=== PATIENT | female | born 1985 | race African-American/Black ===

== ENCOUNTER 2017-10-05 18:54 | Emergency (ER) | payer OTHER ==
[~2017-10-05] VITALS: Ht 162.6 cm; Wt 53.5 kg
--- NOTE | ~2017-10-05 | EKG ---
[address] [address] ELECTROCARDIOGRAM REPORT Name: SHIV MYERS Room #: DEP RENATO Onofre#: [id number] Admission: 10/05/17 Attend Phys: Discharge: 10/05/17 Date of : 85 Report #: [id number] THIS REPORT FOR: //name// [facility] ED Test Date: 2017-10-05 Test Time: 19:00:05 Pat Name: SHIV MYERS Department: Room: Gender: F Back Tender Pulp Drier: LOLA : 1985 Requested By: Hermila Gill Order Number: [id number] MD: Rj Gong Measurements Intervals [place] Rate: 63 P: 67 [place]: 142 QRS: 59 QRSD: 77 T: 29 QT: 393 QTc: 403 Interpretive Statements Sinus rhythm No significant abnormality No previous ECG available for comparison Electronically Signed On 10-06-2017 8:22:03 HOUSE SITTER by Rj Gong [email or web address] <ELECTRONICALLY SIGNED> By: Rj Gong MD, [facility] 10/06/17 0822 1900 1900 Rj Gong MD, FACC /EPI
[2017-10-05 19:36] LABS: ABSOLUTE NEUTROPHILS 5.5 thou/uL (1.4-8.2); BASOPHILS 1.3 % (0.0-2.0); EOSINOPHILS 1.1 % (0.0-3.0); HEMATOCRIT 35.5 % (37.0-47.0); HEMOGLOBIN 11.4 gm/dL (12.0-15.0); LYMPHOCYTES 27.2 % (24.0-44.0); MCH 24.9 pg (26.0-34.0); MCHC 32.1 g/dL (28.0-37.0); MCV 77.5 fL (80.0-100.0); PLATELET COUNT 282 thou/uL (150-400); POLYS 61.4 % (36.0-66.0); RBC 4.59 mil/uL (4.20-5.00); RDW 17.1 % (10.5-14.5); WBC 8.9 thou/uL (4.0-11.0)
[2017-10-05 19:38] LABS: MANUAL DIFF NO
[2017-10-05 19:50] LABS: ANION GAP 10 mmol/L (7-16); BUN 14 mg/dL (7-18); CALCIUM 9.8 mg/dL (8.5-10.1); CHLORIDE 107 mmol/L (98-107); CO2 24 mmol/L (21-32); CREATININE 0.7 mg/dL (0.6-1.0); GLUCOSE 91 mg/dL (74-106); POTASSIUM 3.8 mmol/L (3.5-5.1); SODIUM 141 mmol/L (136-145)
[2017-10-05 20:02] LABS: ALKALINE PHOSPHATASE 82 U/L (46-116); SGOT 20 U/L (15-37); SGPT 23 U/L (30-65); TOTAL BILIRUBIN 0.3 mg/dL (<0.1-1.0); TOTAL PROTEIN 7.7 g/dL (6.4-8.2); TROPONIN-I < 0.04 ng/mL (<0.06)
[2017-10-05] MEDS ORDERED: HYDROCODONE-AP1 EAC6 PO (20:33)
[2017-10-05 20:44] VITALS: BP 93/43
== END 2017-10-05 20:45 | disposition home or self-care (01) ==
LOC: ER 18:54
PROVIDERS: Physician Assistant
DX: R07.89 Other chest pain (principal); J45.909 Unspecified asthma, uncomplicated

== ENCOUNTER 2017-10-28 19:55 | Emergency (ER) | payer OTHER ==
[~2017-10-28] VITALS: Ht 162.6 cm; Wt 54.9 kg
[~2017-10-28 19:55] MED LIST: HYDROCODONE-AP1 EAC6 PO
[2017-10-28] MEDS ORDERED: NOHOMEMEDICATIONS (20:19)
[2017-10-28 20:37] LABS: URINE BILIRUBIN NEGATIVE (Negative); URINE BLOOD 1+ (Negative); URINE CLARITY CLEAR; URINE COLOR YELLOW; URINE GLUCOSE-RANDOM* NEGATIVE (Negative); URINE KETONES NEGATIVE (Negative); URINE LEUKOCYTES-REFLEX NEGATIVE (Negative); URINE NITRITE-REFLEX NEGATIVE (Negative); URINE PROTEIN (DIPSTICK) NEGATIVE (Negative); URINE SPECIFIC GRAVITY 1.015 (1.005-1.035); URINE UROBILINOGEN 0.2 E.U./dl (0.2-1.0)
[2017-10-28 20:54] LABS: SQUAMOUS 0-3 Few /LPF (0-3); URINE WBC-REFLEX 0-5 Rare /HPF (0-5)
[2017-10-28 20:55] LABS: AMORPHOUS PHOSPHATES Moderate /LPF (None Seen); CASTS None Seen /LPF (None Seen); URINE RBC 3-10 Few /HPF (0-2)
[2017-10-28] MEDS ORDERED: KEFLEX500 M1 PO (21:22)
[2017-10-28] MEDS ORDERED: ONDANSETRON HCL4 M2 PO (21:23)
[2018-02-17] MEDS ORDERED: ATIVAN0.5 MG PO (23:12)
== END 2017-10-28 21:33 | disposition home or self-care (01) ==
LOC: ER 19:55
PROVIDERS: Emergency Medicine
DX: N39.0 Urinary tract infection, site not specified (principal); J45.909 Unspecified asthma, uncomplicated; F17.210 Nicotine dependence, cigarettes, uncomplicated

== ENCOUNTER 2017-11-05 07:17 | Emergency (ER) | payer OTHER ==
[~2017-11-05] VITALS: Ht 162.6 cm; Wt 53.5 kg
[~2017-11-05 07:17] MED LIST changes: +KEFLEX500 M1 PO; +NOHOMEMEDICATIONS; +ONDANSETRON HCL4 M2 PO
[2017-11-05 07:46] LABS: URINE BILIRUBIN NEGATIVE (Negative); URINE BLOOD 2+ (Negative); URINE CLARITY CLEAR; URINE COLOR YELLOW; URINE GLUCOSE-RANDOM* NEGATIVE (Negative); URINE KETONES NEGATIVE (Negative); URINE LEUKOCYTES-REFLEX NEGATIVE (Negative); URINE NITRITE-REFLEX NEGATIVE (Negative); URINE PROTEIN (DIPSTICK) NEGATIVE (Negative); URINE SPECIFIC GRAVITY >= 1.030 (1.005-1.035); URINE UROBILINOGEN 0.2 E.U./dl (0.2-1.0)
[2017-11-05 07:51] LABS: CASTS None Seen /LPF (None Seen); CRYSTALS None Seen /LPF (None Seen); MUCUS >6 Heavy strn/LPF (None Seen); SQUAMOUS >10 Many /LPF (0-3)
[2017-11-05 07:52] LABS: BACTERIA-REFLEX None Seen /HPF (None Seen); URINE RBC 3-10 Few /HPF (0-2); URINE WBC-REFLEX None Seen /HPF (0-5)
[2017-11-05 08:05] LABS: ABSOLUTE NEUTROPHILS 3.2 thou/uL (1.4-8.2); BASOPHILS 0.8 % (0.0-2.0); EOSINOPHILS 2.6 % (0.0-3.0); HEMOGLOBIN 12.1 gm/dL (12.0-15.0); LYMPHOCYTES 31.3 % (24.0-44.0); MCH 25.7 pg (26.0-34.0); MCHC 32.6 g/dL (28.0-37.0); MCV 78.7 fL (80.0-100.0); MONOCYTES 9.7 % (1.0-8.0); PLATELET COUNT 247 thou/uL (150-400); POLYS 55.6 % (36.0-66.0); RBC 4.71 mil/uL (4.20-5.00); RDW 17.2 % (10.5-14.5); WBC 5.8 thou/uL (4.0-11.0)
[2017-11-05 08:14] LABS: CALCIUM 9.3 mg/dL (8.5-10.1); CREATININE 0.6 mg/dL (0.6-1.0); POTASSIUM 3.9 mmol/L (3.5-5.1)
[2017-11-05 08:20] LABS: ALBUMIN 3.8 g/dL (3.4-5.0); TOTAL BILIRUBIN 0.3 mg/dL (<0.1-1.0); TOTAL PROTEIN 7.4 g/dL (6.4-8.2)
[2017-11-05] MEDS ORDERED: ULTRAM 50MG TAB50 MG PO (09:10)
[2017-11-05] MEDS ORDERED: PYRIDIUM200 MG PO (09:10)
[2018-02-17] MEDS ORDERED: ATIVAN0.5 MG PO (23:12)
== END 2017-11-05 09:37 | disposition home or self-care (01) ==
LOC: ER 07:17
PROVIDERS: Emergency Medicine
DX: R10.2 Pelvic and perineal pain (principal); R31.29 Other microscopic hematuria; N92.6 Irregular menstruation, unspecified; J45.909 Unspecified asthma, uncomplicated; F17.210 Nicotine dependence, cigarettes, uncomplicated

== ENCOUNTER 2017-12-18 19:35 | Emergency (ER) | payer OTHER ==
[~2017-12-18] VITALS: Ht 162.6 cm; Wt 55.3 kg
--- NOTE | ~2017-12-18 | EKG ---
[address] [facility] [place] [address] ELECTROCARDIOGRAM REPORT Name: SHIV MYERS Room #: [facility]#: [id number] Admission: 12/18/17 Attend Phys: Discharge: 12/18/17 Date of : 85 Report #: [id number] THIS REPORT FOR: //name// [facility] ED Test Date: 2017-12-18 Test Time: 19:45:33 Pat Name: SHIV MYERS Department: Room: Gender: F Performance Test Consultant: KATRINA : 1985 Requested By: Jarred Vieyra Order Number: [id number] MD: Rj Gong Measurements Intervals [place] Rate: 85 P: -1 [place]: 130 QRS: 50 QRSD: 74 T: 2 QT: 344 QTc: 409 Interpretive Statements Sinus rhythm No significant abnormality Compared to ECG 10/05/2017 19:00:05 No significant changes Electronically Signed On 12-19-2017 8:42:47 WIRE STRIPPING MACHINE OPERATOR by Rj Gong [email or web address] <ELECTRONICALLY SIGNED> By: Rj Gong MD, [facility] 12/19/17 0842 1945 44 Rj Gong MD, FACC /EPI
[~2017-12-18 19:35] MED LIST changes: +PYRIDIUM200 MG PO; +ULTRAM 50MG TAB50 MG PO
[2017-12-18 19:52] LABS: URINE BILIRUBIN NEGATIVE (Negative); URINE BLOOD TRACE (Negative); URINE CLARITY CLEAR; URINE COLOR YELLOW; URINE GLUCOSE-RANDOM* NEGATIVE (Negative); URINE KETONES NEGATIVE (Negative); URINE LEUKOCYTES NEGATIVE (Negative); URINE NITRITE NEGATIVE (Negative); URINE PROTEIN (DIPSTICK) NEGATIVE (Negative); URINE UROBILINOGEN 0.2 E.U./dl (0.2-1.0)
[2017-12-18] MEDS ORDERED: MACROBID 100 M100 M2 PO (20:04)
[2017-12-18 20:07] LABS: AMP/METHAMP Negative (Negative); BARBITURATES Negative (Negative); BENZODIAZEPINES Negative (Negative); COCAINE Negative (Negative); METHADONE Negative (Negative); OPIATES Negative (Negative); PCP Negative (Negative)
[2017-12-18 20:41] LABS: ANION GAP 6 mmol/L (7-16); BUN 13 mg/dL (7-18); CALCIUM 9.2 mg/dL (8.5-10.1); CHLORIDE 107 mmol/L (98-107); CO2 27 mmol/L (21-32); CREATININE 0.7 mg/dL (0.6-1.0); GLUCOSE 95 mg/dL (74-106); POTASSIUM 3.7 mmol/L (3.5-5.1); SODIUM 140 mmol/L (136-145)
[2017-12-18 20:49] LABS: TROPONIN-I < 0.04 ng/mL (<0.06)
[2017-12-18] MEDS ORDERED: NAPROSYN500 MG PO (20:54)
[2018-02-17] MEDS ORDERED: ATIVAN0.5 MG PO (23:12)
== END 2017-12-18 21:23 | disposition home or self-care (01) ==
LOC: ER 19:35
PROVIDERS: Nurse Practitioner
DX: R07.89 Other chest pain (principal); M79.1 Myalgia; M79.602 Pain in left arm; J45.909 Unspecified asthma, uncomplicated; F17.210 Nicotine dependence, cigarettes, uncomplicated

== ENCOUNTER 2018-01-06 18:37 | Emergency (ER) | payer OTHER ==
[~2018-01-06] VITALS: Ht 162.6 cm; Wt 58.5 kg
[~2018-01-06 18:37] MED LIST changes: +MACROBID 100 M100 M2 PO; +NAPROSYN500 MG PO
[2018-01-06 19:07] LABS: URINE BILIRUBIN NEGATIVE (Negative); URINE BLOOD 2+ (Negative); URINE CLARITY SL CLOUDY; URINE COLOR YELLOW; URINE GLUCOSE-RANDOM* NEGATIVE (Negative); URINE KETONES NEGATIVE (Negative); URINE LEUKOCYTES-REFLEX 2+ (Negative); URINE NITRITE-REFLEX NEGATIVE (Negative); URINE PROTEIN (DIPSTICK) NEGATIVE (Negative); URINE SPECIFIC GRAVITY 1.015 (1.005-1.035); URINE UROBILINOGEN 0.2 E.U./dl (0.2-1.0)
[2018-01-06 19:15] LABS: AMORPHOUS URATES Many /LPF (None Seen); BACTERIA-REFLEX 1-9 Few /HPF (None Seen); CASTS None Seen /LPF (None Seen); SQUAMOUS 4-10 Moderate /LPF (0-3); URINE RBC 3-10 Few /HPF (0-2); URINE WBC-REFLEX 0-5 Rare /HPF (0-5)
[2018-01-06] MEDS ORDERED: FLAGYL500 MG PO (19:41)
[2018-01-06] MEDS ORDERED: BACTRIM DS TAB1 EACH PO (19:41)
[2018-01-06] MEDS ORDERED: TINIDAZOLE500 MG PO (19:55)
[2018-01-06] MEDS ORDERED: ZOFRAN ODT8 MG PO (19:55)
[2018-02-17] MEDS ORDERED: ATIVAN0.5 MG PO (23:12)
== END 2018-01-06 20:00 | disposition home or self-care (01) ==
LOC: ER 18:37
PROVIDERS: Physician Assistant
DX: N75.0 Cyst of Bartholin's gland (principal); A59.9 Trichomoniasis, unspecified; N76.0 Acute vaginitis; B96.89 Other specified bacterial agents as the cause of diseases classified elsewhere; F41.9 Anxiety disorder, unspecified; J45.909 Unspecified asthma, uncomplicated; F17.210 Nicotine dependence, cigarettes, uncomplicated

== ENCOUNTER 2018-02-26 16:27 | Emergency (ER) | payer OTHER ==
[~2018-02-26] VITALS: Ht 162.6 cm; Wt 62.6 kg
[~2018-02-26 16:27] MED LIST changes: +ATIVAN0.5 MG PO; +BACTRIM DS TAB1 EACH PO; +FLAGYL500 MG PO; +TINIDAZOLE500 MG PO; +ZOFRAN ODT8 MG PO
[2018-02-26 17:52] VITALS: BP 101/60
[2018-02-26] MEDS ORDERED: PREDNISONE 20 M20 MG PO (18:00)
[2018-02-26] MEDS ORDERED: PROMETH-CODEIN 65 ML PO (18:00)
== END 2018-02-26 18:00 | disposition home or self-care (01) ==
LOC: ER 16:27
DX: R05 Cough (principal); J45.909 Unspecified asthma, uncomplicated; F17.210 Nicotine dependence, cigarettes, uncomplicated; F41.9 Anxiety disorder, unspecified; Z71.6 Tobacco abuse counseling

== ENCOUNTER 2018-04-12 09:31 | Emergency (ER) | payer OTHER ==
[~2018-04-12] VITALS: Ht 162.6 cm; Wt 59.9 kg
[~2018-04-12 09:31] MED LIST changes: +PREDNISONE 20 M20 MG PO; +PROMETH-CODEIN 65 ML PO
[2018-04-12] MEDS ORDERED: ATIVAN0.5 MG PO (09:42)
[2018-04-12 10:06] VITALS: BP 113/70
== END 2018-04-12 10:07 | disposition home or self-care (01) ==
LOC: ER 09:31
DX: F41.9 Anxiety disorder, unspecified (principal); R51 Headache; J45.909 Unspecified asthma, uncomplicated; F17.210 Nicotine dependence, cigarettes, uncomplicated

== ENCOUNTER 2018-04-27 08:12 | Emergency (ER) | payer OTHER ==
[~2018-04-27] VITALS: Ht 162.6 cm; Wt 59.0 kg
[2018-04-27 08:13] VITALS: BP 108/70
[2018-04-27] MEDS ORDERED: ATIVAN0.5 MG PO (12:40)
== END 2018-04-27 09:29 | disposition left against medical advice (07) ==
LOC: ER 08:12
DX: F41.9 Anxiety disorder, unspecified (principal)

== ENCOUNTER 2018-04-27 11:47 | Emergency (ER) | payer OTHER ==
[~2018-04-27] VITALS: Ht 162.6 cm; Wt 59.0 kg
--- NOTE | ~2018-04-27 | EKG ---
[place] [address] [facility] [place] [address] ELECTROCARDIOGRAM REPORT Name: SHIV MYERS Room #: [facility]#: [id number] Admission: 04/27/18 Attend Phys: Discharge: 04/27/18 Date of : 85 Report #: [id number] THIS REPORT FOR: //name// [facility] ED Test Date: 2018-04-27 Test Time: 12:07:29 Pat Name: SHIV MYERS Department: Room: Gender: F Repairing Calibrator: : 1985 Requested By: Caleb Natarajan Order Number: [id number] MD: Rj Gong Measurements Intervals [place] Rate: 76 P: 52 [place]: 153 QRS: 49 QRSD: 76 T: 5 QT: 376 QTc: 423 Interpretive Statements Sinus rhythm Borderline T wave abnormalities Compared to ECG 12/18/2017 19:45:33 T-wave abnormality now present Electronically Signed On 04-28-2018 8:35:45 CDT by Rj Gong [email or web address] <ELECTRONICALLY SIGNED> By: Rj Gong MD, [facility] 04/28/18 0835 1207 06 Rj Gong MD, FACC /EPI
[2018-04-27 11:55] VITALS: BP 98/46
[2018-04-27] MEDS ORDERED: ATIVAN0.5 MG PO (12:40)
== END 2018-04-27 13:29 | disposition home or self-care (01) ==
LOC: ER 11:47
DX: F41.9 Anxiety disorder, unspecified (principal); R07.9 Chest pain, unspecified; R51 Headache; J45.909 Unspecified asthma, uncomplicated; F17.210 Nicotine dependence, cigarettes, uncomplicated

== ENCOUNTER 2018-07-14 07:57 | Emergency (ER) | payer OTHER ==
[~2018-07-14] VITALS: Ht 162.6 cm; Wt 65.8 kg
[2018-07-14 08:28] LABS: HEMATOCRIT 39.6 % (37.0-47.0); MCH 27.5 pg (26.0-34.0); MCHC 32.7 g/dL (28.0-37.0); MCV 84.1 fL (80.0-100.0); RBC 4.71 mil/uL (4.20-5.00); RDW 13.2 % (10.5-14.5); WBC 7.4 thou/uL (4.0-11.0)
[2018-07-14 08:28] LABS: URINE BILIRUBIN NEGATIVE (Negative); URINE BLOOD 1+ (Negative); URINE CLARITY CLEAR; URINE COLOR YELLOW; URINE GLUCOSE-RANDOM* NEGATIVE (Negative); URINE KETONES NEGATIVE (Negative); URINE LEUKOCYTES-REFLEX NEGATIVE (Negative); URINE NITRITE-REFLEX NEGATIVE (Negative); URINE PROTEIN (DIPSTICK) NEGATIVE (Negative); URINE SPECIFIC GRAVITY >= 1.030 (1.005-1.035); URINE UROBILINOGEN 0.2 E.U./dl (0.2-1.0)
[2018-07-14 08:39] LABS: CALCIUM 9.8 mg/dL (8.5-10.1); CREATININE 0.6 mg/dL (0.6-1.0); POTASSIUM 3.8 mmol/L (3.5-5.1)
[2018-07-14 08:48] LABS: BACTERIA-REFLEX 1-9 Few /HPF (None Seen); CASTS None Seen /LPF (None Seen); CRYSTALS None Seen /LPF (None Seen); MUCUS 4-6 Moderate strn/LPF (None Seen); SQUAMOUS 4-10 Moderate /LPF (0-3); URINE RBC 3-10 Few /HPF (0-2); URINE WBC-REFLEX 0-5 Rare /HPF (0-5)
[2018-07-14] MEDS ORDERED: ZOFRAN ODT8 MG SUBLING (09:29)
[2018-07-14] MEDS ORDERED: KEFLEX500 M1 PO (09:29)
[2018-07-14 09:37] VITALS: BP 122/69
== END 2018-07-14 09:38 | disposition home or self-care (01) ==
LOC: ER 07:57
PROVIDERS: Emergency Medicine
DX: N39.0 Urinary tract infection, site not specified (principal); R51 Headache; J45.909 Unspecified asthma, uncomplicated; F41.9 Anxiety disorder, unspecified; F17.210 Nicotine dependence, cigarettes, uncomplicated

== ENCOUNTER 2018-07-20 13:57 | Emergency (ER) | payer OTHER ==
[~2018-07-20] VITALS: Ht 162.6 cm; Wt 64.9 kg
[~2018-07-20 13:57] MED LIST changes: +ZOFRAN ODT8 MG SUBLING
[2018-07-20 14:25] LABS: URINE BILIRUBIN NEGATIVE (Negative); URINE BLOOD 1+ (Negative); URINE CLARITY CLEAR; URINE COLOR YELLOW; URINE GLUCOSE-RANDOM* NEGATIVE (Negative); URINE KETONES NEGATIVE (Negative); URINE LEUKOCYTES-REFLEX NEGATIVE (Negative); URINE NITRITE-REFLEX NEGATIVE (Negative); URINE PROTEIN (DIPSTICK) NEGATIVE (Negative); URINE UROBILINOGEN 0.2 E.U./dl (0.2-1.0)
[2018-07-20 14:33] LABS: SQUAMOUS >10 Many /LPF (0-3)
[2018-07-20 14:34] LABS: BACTERIA-REFLEX 1-9 Few /HPF (None Seen); CASTS None Seen /LPF (None Seen); CRYSTALS None Seen /LPF (None Seen); URINE RBC 3-10 Few /HPF (0-2); URINE WBC-REFLEX None Seen /HPF (0-5)
[2018-07-20 14:55] LABS: HEMATOCRIT 40.1 % (37.0-47.0); HEMOGLOBIN 13.4 gm/dL (12.0-15.0); MCH 28.1 pg (26.0-34.0); MCHC 33.4 g/dL (28.0-37.0); RBC 4.77 mil/uL (4.20-5.00); RDW 13.3 % (10.5-14.5); WBC 10.5 thou/uL (4.0-11.0)
[2018-07-20 15:04] LABS: CALCIUM 9.5 mg/dL (8.5-10.1); CREATININE 0.7 mg/dL (0.6-1.0); POTASSIUM 3.5 mmol/L (3.5-5.1)
[2018-07-20 15:10] LABS: ALBUMIN 3.9 g/dL (3.4-5.0); TOTAL BILIRUBIN 0.2 mg/dL (<0.1-1.0); TOTAL PROTEIN 8.1 g/dL (6.4-8.2)
[2018-07-20 15:24] VITALS: BP 112/66
== END 2018-07-20 15:25 | disposition home or self-care (01) ==
LOC: ER 13:57
PROVIDERS: Emergency Medicine
DX: R53.83 Other fatigue (principal); R11.0 Nausea; J45.909 Unspecified asthma, uncomplicated; F41.9 Anxiety disorder, unspecified

== ENCOUNTER 2018-07-24 09:40 | Emergency (ER) | payer OTHER ==
[~2018-07-24] VITALS: Ht 162.6 cm; Wt 64.4 kg
[2018-07-24 10:36] VITALS: BP 111/68
== END 2018-07-24 10:37 | disposition home or self-care (01) ==
LOC: ER 09:40
DX: N91.2 Amenorrhea, unspecified (principal); Z71.1 Person with feared health complaint in whom no diagnosis is made; J45.909 Unspecified asthma, uncomplicated; F41.9 Anxiety disorder, unspecified; F17.210 Nicotine dependence, cigarettes, uncomplicated; Z32.00 Encounter for pregnancy test, result unknown

== ENCOUNTER 2018-08-09 21:34 | Emergency (ER) | payer OTHER ==
[~2018-08-09] VITALS: Ht 162.6 cm; Wt 66.2 kg
[2018-08-09 22:20] LABS: URINE BILIRUBIN NEGATIVE (Negative); URINE BLOOD 1+ (Negative); URINE CLARITY CLEAR; URINE COLOR YELLOW; URINE GLUCOSE-RANDOM* NEGATIVE (Negative); URINE KETONES NEGATIVE (Negative); URINE LEUKOCYTES-REFLEX NEGATIVE (Negative); URINE NITRITE-REFLEX NEGATIVE (Negative); URINE PROTEIN (DIPSTICK) TRACE (Negative); URINE SPECIFIC GRAVITY 1.015 (1.005-1.035); URINE UROBILINOGEN 0.2 E.U./dl (0.2-1.0)
[2018-08-09 22:31] LABS: BACTERIA-REFLEX 1-9 Few /HPF (None Seen); CASTS None Seen /LPF (None Seen); CRYSTALS None Seen /LPF (None Seen); SQUAMOUS 0-3 Few /LPF (0-3); URINE RBC 3-10 Few /HPF (0-2); URINE WBC-REFLEX 0-5 Rare /HPF (0-5)
[2018-08-09 23:06] LABS: HEMATOCRIT 34.9 % (37.0-47.0); HEMOGLOBIN 11.6 gm/dL (12.0-15.0); MCH 27.7 pg (26.0-34.0); MCHC 33.1 g/dL (28.0-37.0); MCV 83.7 fL (80.0-100.0); PLATELET COUNT 266 thou/uL (150-400); RBC 4.18 mil/uL (4.20-5.00); RDW 12.9 % (10.5-14.5); WBC 8.7 thou/uL (4.0-11.0)
[2018-08-09 23:12] LABS: CALCIUM 9.2 mg/dL (8.5-10.1); CREATININE 0.6 mg/dL (0.6-1.0); POTASSIUM 3.7 mmol/L (3.5-5.1)
[2018-08-09 23:33] LABS: ABSOLUTE NEUTROPHILS 5.5 thou/uL (1.4-8.2); ATYPICAL LYMPHS 2 %; LARGE PLATELETS RARE
[2018-08-10 00:48] VITALS: BP 115/66
== END 2018-08-10 00:48 | disposition home or self-care (01) ==
LOC: ER 21:34
PROVIDERS: Emergency Medicine
DX: R10.30 Lower abdominal pain, unspecified (principal); N89.8 Other specified noninflammatory disorders of vagina; J45.909 Unspecified asthma, uncomplicated; F17.210 Nicotine dependence, cigarettes, uncomplicated

== ENCOUNTER 2018-08-12 21:35 | Emergency (ER) | payer OTHER ==
[~2018-08-12] VITALS: Ht 162.6 cm; Wt 65.8 kg
[2018-08-12 21:58] VITALS: BP 108/63
== END 2018-08-13 09:18 | disposition home or self-care (01) ==
LOC: ER 21:35
DX: Z53.21 Procedure and treatment not carried out due to patient leaving prior to being seen by health care provider (principal)

== ENCOUNTER 2018-09-07 22:06 | Emergency (ER) | payer OTHER ==
[~2018-09-07] VITALS: Ht 162.6 cm; Wt 64.0 kg
[2018-09-07] MEDS ORDERED: NORFLEX100 MG PO (23:22)
[2018-09-07] MEDS ORDERED: TRAMADOL 50 MG50 MG PO (23:22)
[2018-09-07] MEDS ORDERED: NAPROSYN500 MG PO (23:22)
[2018-09-07 23:50] VITALS: BP 106/72
== END 2018-09-07 23:51 | disposition home or self-care (01) ==
LOC: ER 22:06
DX: M43.6 Torticollis (principal); R20.2 Paresthesia of skin; F17.210 Nicotine dependence, cigarettes, uncomplicated; J45.909 Unspecified asthma, uncomplicated; F41.9 Anxiety disorder, unspecified

== ENCOUNTER 2018-10-15 20:29 | Emergency (ER) | payer OTHER ==
[~2018-10-15] VITALS: Ht 162.6 cm; Wt 64.0 kg
[~2018-10-15 20:29] MED LIST changes: +NORFLEX100 MG PO; +TRAMADOL 50 MG50 MG PO
[2018-10-15 21:14] LABS: URINE CLARITY CLEAR; URINE COLOR YELLOW; URINE SPECIFIC GRAVITY 1.015 (1.005-1.035)
[2018-10-15 21:19] LABS: URINE BILIRUBIN NEGATIVE (Negative); URINE BLOOD NEGATIVE (Negative); URINE GLUCOSE-RANDOM* NEGATIVE (Negative); URINE KETONES NEGATIVE (Negative); URINE NITRITE-REFLEX NEGATIVE (Negative)
[2018-10-15 21:20] LABS: URINE LEUKOCYTES-REFLEX NEGATIVE (Negative); URINE UROBILINOGEN 0.2 E.U./dl (0.2-1.0)
[2018-10-15 21:23] LABS: SSA (PROTEIN CONFIRMATORY) NEGATIVE (Negative); URINE PROTEIN (DIPSTICK) NEGATIVE (Negative)
[2018-10-15] MEDS ORDERED: ZOFRAN ODT4 MG PO (21:57)
[2018-10-15 22:06] VITALS: BP 107/61
== END 2018-10-15 22:11 | disposition home or self-care (01) ==
LOC: ER 20:29
PROVIDERS: Emergency Medicine
DX: R11.2 Nausea with vomiting, unspecified (principal); J45.909 Unspecified asthma, uncomplicated; F41.9 Anxiety disorder, unspecified; F17.210 Nicotine dependence, cigarettes, uncomplicated

== ENCOUNTER 2018-10-23 07:23 | Emergency (ER) | payer OTHER ==
[~2018-10-23] VITALS: Ht 162.6 cm; Wt 63.0 kg
[~2018-10-23 07:23] MED LIST changes: +ZOFRAN ODT4 MG PO
[2018-10-23 07:24] VITALS: BP 103/51
[2018-10-23 07:43] LABS: URINE CLARITY CLEAR; URINE COLOR YELLOW
[2018-10-23 07:44] LABS: URINE BILIRUBIN NEGATIVE (Negative); URINE BLOOD 3+ (Negative); URINE GLUCOSE-RANDOM* NEGATIVE (Negative); URINE KETONES NEGATIVE (Negative); URINE LEUKOCYTES-REFLEX NEGATIVE (Negative); URINE NITRITE-REFLEX NEGATIVE (Negative); URINE PROTEIN (DIPSTICK) NEGATIVE (Negative); URINE SPECIFIC GRAVITY >= 1.030 (1.005-1.035); URINE UROBILINOGEN 0.2 E.U./dl (0.2-1.0)
[2018-10-23 08:00] LABS: CASTS None Seen /LPF (None Seen); CRYSTALS None Seen /LPF (None Seen); SQUAMOUS >10 Many /LPF (0-3)
[2018-10-23 08:01] LABS: URINE WBC-REFLEX 0-5 Rare /HPF (0-5)
[2018-10-23 08:02] LABS: URINE RBC 3-10 Few /HPF (0-2)
[2018-10-23 08:03] LABS: BACTERIA-REFLEX 1-9 Few /HPF (None Seen)
[2018-10-23 08:29] LABS: ABSOLUTE NEUTROPHILS 4.3 thou/uL (1.4-8.2); BASOPHILS 0.7 % (0.0-2.0); EOSINOPHILS 1.7 % (0.0-3.0); HEMATOCRIT 33.7 % (37.0-47.0); HEMOGLOBIN 11.1 gm/dL (12.0-15.0); LYMPHOCYTES 25.4 % (24.0-44.0); MCH 26.8 pg (26.0-34.0); MCV 81.2 fL (80.0-100.0); MONOCYTES 10.1 % (1.0-8.0); PLATELET COUNT 271 thou/uL (150-400); POLYS 62.1 % (36.0-66.0); RBC 4.16 mil/uL (4.20-5.00); RDW 13.7 % (10.5-14.5)
[2018-10-23 08:49] LABS: ANION GAP 11 mmol/L (7-16); BUN 9 mg/dL (7-18); CHLORIDE 106 mmol/L (98-107); CO2 21 mmol/L (21-32); CREATININE 0.6 mg/dL (0.6-1.0); GLUCOSE 95 mg/dL (74-106); POTASSIUM 3.6 mmol/L (3.5-5.1); SODIUM 138 mmol/L (136-145)
[2018-10-23 08:53] LABS: ALBUMIN 3.4 g/dL (3.4-5.0); DIRECT BILIRUBIN < 0.1 mg/dL (<0.1-0.3); LIPASE 72 U/L (73-393); SGOT 16 U/L (15-37); SGPT 17 U/L (30-65); TOTAL BILIRUBIN 0.2 mg/dL (<0.1-1.0); TOTAL PROTEIN 7.4 g/dL (6.4-8.2)
== END 2018-10-23 09:30 | disposition home or self-care (01) ==
LOC: ER 07:23
PROVIDERS: Emergency Medicine
DX: R11.10 Vomiting, unspecified (principal); R10.30 Lower abdominal pain, unspecified; F41.9 Anxiety disorder, unspecified; J45.909 Unspecified asthma, uncomplicated; F17.210 Nicotine dependence, cigarettes, uncomplicated

== ENCOUNTER 2018-11-02 08:10 | Emergency (ER) | payer OTHER ==
[~2018-11-02] VITALS: Ht 162.6 cm; Wt 66.7 kg
[2018-11-02 08:24] LABS: URINE BILIRUBIN NEGATIVE (Negative); URINE BLOOD 1+ (Negative); URINE CLARITY CLEAR; URINE COLOR YELLOW; URINE GLUCOSE-RANDOM* NEGATIVE (Negative); URINE KETONES NEGATIVE (Negative); URINE LEUKOCYTES-REFLEX NEGATIVE (Negative); URINE NITRITE-REFLEX NEGATIVE (Negative); URINE PROTEIN (DIPSTICK) NEGATIVE (Negative); URINE SPECIFIC GRAVITY >= 1.030 (1.005-1.035); URINE UROBILINOGEN 0.2 E.U./dl (0.2-1.0)
[2018-11-02] MEDS ORDERED: KEFLEX500 M1 PO (08:25)
[2018-11-02 08:43] LABS: BACTERIA-REFLEX 1-9 Few /HPF (None Seen); CASTS None Seen /LPF (None Seen); CRYSTALS None Seen /LPF (None Seen); MUCUS 4-6 Moderate strn/LPF (None Seen); SQUAMOUS >10 Many /LPF (0-3); URINE RBC 0-2 Rare /HPF (0-2); URINE WBC-REFLEX 6-15 Few /HPF (0-5)
[2018-11-02 13:15] VITALS: BP 109/71
== END 2018-11-02 13:16 | disposition home or self-care (01) ==
LOC: ER 08:10
PROVIDERS: Emergency Medicine
DX: O26.891 Other specified pregnancy related conditions, first trimester (principal); R10.2 Pelvic and perineal pain; J45.909 Unspecified asthma, uncomplicated; F41.9 Anxiety disorder, unspecified; Z87.891 Personal history of nicotine dependence; Z3A.01 Less than 8 weeks gestation of pregnancy

== ENCOUNTER 2019-06-30 07:53 | Emergency (ER) | payer OTHER ==
[~2019-06-30] VITALS: Ht 162.6 cm; Wt 65.8 kg
[2019-06-30] MEDS ORDERED: PRENATAL PO (08:02)
[2019-06-30 08:08] LABS: URINE BILIRUBIN NEGATIVE (Negative); URINE BLOOD 3+ (Negative); URINE CLARITY CLEAR; URINE COLOR YELLOW; URINE GLUCOSE-RANDOM* NEGATIVE (Negative); URINE KETONES NEGATIVE (Negative); URINE LEUKOCYTES 3+ (Negative); URINE NITRITE NEGATIVE (Negative); URINE PROTEIN (DIPSTICK) 1+ (Negative); URINE SPECIFIC GRAVITY <= 1.005 (1.005-1.035); URINE UROBILINOGEN 0.2 E.U./dl (0.2-1.0)
[2019-06-30 08:19] LABS: BACTERIA None Seen /HPF (None Seen); CASTS None Seen /LPF (None Seen); CRYSTALS None Seen /LPF (None Seen); SQUAMOUS 0-3 Few /LPF (0-3); URINE WBC >25 Many /HPF (0-5); WBC CLUMPS Packed (None Seen)
[2019-06-30 09:08] LABS: ABSOLUTE NEUTROPHILS 5.9 thou/uL (1.4-8.2); BASOPHILS 1.2 % (0.0-2.0); EOSINOPHILS 1.8 % (0.0-3.0); HEMATOCRIT 37.9 % (37.0-47.0); HEMOGLOBIN 12.1 gm/dL (12.0-15.0); LYMPHOCYTES 20.3 % (24.0-44.0); MCH 27.4 pg (26.0-34.0); MCV 85.6 fL (80.0-100.0); MONOCYTES 10.3 % (1.0-8.0); PLATELET COUNT 334 thou/uL (150-400); POLYS 66.4 % (36.0-66.0); RBC 4.43 mil/uL (4.20-5.00); RDW 13.6 % (10.5-14.5); WBC 8.9 thou/uL (4.0-11.0)
[2019-06-30 09:17] LABS: CALCIUM 8.8 mg/dL (8.5-10.1); CREATININE 0.7 mg/dL (0.6-1.0); POTASSIUM 3.7 mmol/L (3.5-5.1)
[2019-06-30 09:23] LABS: ALBUMIN 2.8 g/dL (3.4-5.0); TOTAL BILIRUBIN 0.1 mg/dL (<0.1-1.0); TOTAL PROTEIN 7.2 g/dL (6.4-8.2)
[2019-06-30] MEDS ORDERED: NAPROSYN500 MG PO (09:30)
[2019-06-30] MEDS ORDERED: KEFLEX500 M1 PO (09:30)
[2019-06-30] MEDS ORDERED: ACETAMINOPHEN-1 EAC1 PO (09:30)
[2019-06-30 09:38] LABS: URINE BILIRUBIN NEGATIVE (Negative); URINE BLOOD 2+ (Negative); URINE CLARITY CLEAR; URINE COLOR YELLOW; URINE GLUCOSE-RANDOM* NEGATIVE (Negative); URINE KETONES NEGATIVE (Negative); URINE NITRITE-REFLEX NEGATIVE (Negative); URINE PROTEIN (DIPSTICK) TRACE (Negative); URINE SPECIFIC GRAVITY <= 1.005 (1.005-1.035); URINE UROBILINOGEN 0.2 E.U./dl (0.2-1.0)
[2019-06-30 09:39] LABS: URINE LEUKOCYTES-REFLEX 3+ (Negative)
[2019-06-30 09:48] LABS: AMORPHOUS URATES Moderate /LPF (None Seen); BACTERIA-REFLEX 1-9 Few /HPF (None Seen); CASTS None Seen /LPF (None Seen); MUCUS 0-3 Light strn/LPF (None Seen); SQUAMOUS 4-10 Moderate /LPF (0-3); URINE RBC 3-10 Few /HPF (0-2); URINE WBC-REFLEX >25 Many /HPF (0-5); WBC CLUMPS Moderate (None Seen)
[2019-06-30 10:23] VITALS: BP 103/68
== END 2019-06-30 10:25 | disposition home or self-care (01) ==
LOC: ER 07:53
PROVIDERS: Emergency Medicine
DX: O86.20 Urinary tract infection following delivery, unspecified (principal); J45.909 Unspecified asthma, uncomplicated; F41.9 Anxiety disorder, unspecified; Z87.891 Personal history of nicotine dependence

== ENCOUNTER 2019-07-12 22:02 | Emergency (ER) | payer OTHER ==
[~2019-07-12] VITALS: Ht 165.1 cm; Wt 59.0 kg
[~2019-07-12 22:02] MED LIST changes: +ACETAMINOPHEN-1 EAC1 PO; +PRENATAL PO
[2019-07-12 23:22] LABS: URINE BILIRUBIN NEGATIVE (Negative); URINE BLOOD 3+ (Negative); URINE CLARITY CLOUDY; URINE COLOR YELLOW; URINE GLUCOSE-RANDOM* NEGATIVE (Negative); URINE KETONES NEGATIVE (Negative); URINE PROTEIN (DIPSTICK) 2+ (Negative); URINE UROBILINOGEN 0.2 E.U./dl (0.2-1.0)
[2019-07-12 23:24] LABS: URINE LEUKOCYTES-REFLEX 2+ (Negative); URINE NITRITE-REFLEX POSITIVE (Negative)
[2019-07-12 23:42] LABS: BACTERIA-REFLEX >30 Many /HPF (None Seen); CASTS None Seen /LPF (None Seen); CRYSTALS None Seen /LPF (None Seen); MUCUS 0-3 Light strn/LPF (None Seen); SQUAMOUS 0-3 Few /LPF (0-3); URINE WBC-REFLEX >25 Many /HPF (0-5); WBC CLUMPS Moderate (None Seen)
[2019-07-13 00:48] LABS: HEMATOCRIT 37.4 % (37.0-47.0); HEMOGLOBIN 12.2 gm/dL (12.0-15.0); MCH 27.4 pg (26.0-34.0); MCHC 32.6 g/dL (28.0-37.0); MCV 84.2 fL (80.0-100.0); PLATELET COUNT 353 thou/uL (150-400); RBC 4.44 mil/uL (4.20-5.00); RDW 13.5 % (10.5-14.5); WBC 9.6 thou/uL (4.0-11.0)
[2019-07-13 00:55] LABS: ANION GAP 11 mmol/L (7-16); BUN 12 mg/dL (7-18); CALCIUM 9.4 mg/dL (8.5-10.1); CHLORIDE 104 mmol/L (98-107); CO2 26 mmol/L (21-32); CREATININE 0.9 mg/dL (0.6-1.0); GLUCOSE 85 mg/dL (74-106); POTASSIUM 3.4 mmol/L (3.5-5.1); SODIUM 141 mmol/L (136-145)
[2019-07-13 01:01] LABS: ALBUMIN 3.2 g/dL (3.4-5.0); DIRECT BILIRUBIN < 0.1 mg/dL (<0.1-0.3); SGOT 13 U/L (15-37); SGPT 13 U/L (30-65); TOTAL BILIRUBIN 0.3 mg/dL (<0.1-1.0); TOTAL PROTEIN 7.6 g/dL (6.4-8.2)
[2019-07-13 01:50] LABS: ABSOLUTE NEUTROPHILS 5.7 thou/uL (1.4-8.2); PLATELET ESTIMATE NORMAL
[2019-07-13 06:15] VITALS: BP 108/84
== END 2019-07-13 06:16 | disposition short-term general hospital (02) ==
LOC: ER 22:02
PROVIDERS: Emergency Medicine; Physician Assistant
DX: O86.20 Urinary tract infection following delivery, unspecified (principal); N20.1 Calculus of ureter; R19.7 Diarrhea, unspecified; J45.909 Unspecified asthma, uncomplicated; F41.9 Anxiety disorder, unspecified

== ENCOUNTER 2019-10-13 12:14 | Emergency (ER) | payer OTHER ==
[~2019-10-13] VITALS: Ht 162.6 cm; Wt 62.6 kg
[2019-10-13 12:49] LABS: ABSOLUTE NEUTROPHILS 4.4 thou/uL (1.4-8.2); EOSINOPHILS 1.9 % (0.0-3.0); HEMATOCRIT 40.1 % (37.0-47.0); HEMOGLOBIN 12.7 gm/dL (12.0-15.0); LYMPHOCYTES 24.9 % (24.0-44.0); MCH 26.5 pg (26.0-34.0); MCHC 31.7 g/dL (28.0-37.0); MCV 83.7 fL (80.0-100.0); MONOCYTES 9.8 % (1.0-8.0); PLATELET COUNT 296 thou/uL (150-400); POLYS 62.4 % (36.0-66.0); RBC 4.79 mil/uL (4.20-5.00)
[2019-10-13 12:56] LABS: ANION GAP 10 mmol/L (7-16); BUN 10 mg/dL (7-18); CALCIUM 9.8 mg/dL (8.5-10.1); CHLORIDE 106 mmol/L (98-107); CO2 24 mmol/L (21-32); CREATININE 0.7 mg/dL (0.6-1.0); GLUCOSE 78 mg/dL (74-106); POTASSIUM 3.7 mmol/L (3.5-5.1); SODIUM 140 mmol/L (136-145)
[2019-10-13 13:06] LABS: SGOT 14 U/L (15-37); SGPT 23 U/L (30-65); TOTAL BILIRUBIN 0.3 mg/dL (<0.1-1.0); TOTAL PROTEIN 8.1 g/dL (6.4-8.2); TROPONIN-I <0.06 ng/mL (<0.06)
[2019-10-13] MEDS ORDERED: MOBIC7.5 MG PO (14:03)
--- NOTE | 2019-10-13 15:23 | EKG ---
[place] [address] [facility] [place] [place] [address] ELECTROCARDIOGRAM REPORT Name: SHIV MYERS Room #: [facility] RENATO Onofre#: [id number] Admission: 10/13/19 Attend Phys: Discharge: Date of : 85 Report #: [id number] THIS REPORT FOR: //name// [facility] ED Test Date: 2019-10-13 Test Time: 12:19:08 Pat Name: SHIV MYERS Department: Room: Gender: F Edge Trimming Machine Operator: JACK : 1985 Requested By: Hermila Gill Order Number: [id number] MD: Rj Gong Measurements Intervals [place] Rate: 70 P: 66 [place]: 149 QRS: 70 QRSD: 75 T: 21 QT: 372 QTc: 402 Interpretive Statements Sinus rhythm Normal tracing Compared to ECG 04/27/2018 12:07:29 T-wave abnormality no longer present Electronically Signed On 10-13-2019 15:23:11 ORGANISATIONAL PSYCHOLOGIST by Rj Gong [email or web address] <ELECTRONICALLY SIGNED> By: Rj Gong MD, [facility] 10/13/19 1523 1219 1219 Rj Gong MD, FACC /EPI
[2019-10-13] MEDS ORDERED: CYCLOBENZAPRINE5 MG PO (15:31)
[2019-10-13 16:22] VITALS: BP 122/88
== END 2019-10-13 16:24 | disposition home or self-care (01) ==
LOC: ER 12:14
PROVIDERS: Physician Assistant
DX: R07.89 Other chest pain (principal); J45.909 Unspecified asthma, uncomplicated; F41.9 Anxiety disorder, unspecified; Z87.891 Personal history of nicotine dependence

== ENCOUNTER 2020-08-29 11:52 | Emergency (ER) | payer OTHER ==
[~2020-08-29] VITALS: Ht 162.6 cm; Wt 59.0 kg
[~2020-08-29 11:52] MED LIST changes: +CYCLOBENZAPRINE5 MG PO; +MOBIC7.5 MG PO
[2020-08-29 12:04] VITALS: BP 109/79
[2020-08-29 13:49] LABS: URINE BILIRUBIN NEGATIVE (Negative); URINE BLOOD 3+ (Negative); URINE CLARITY CLOUDY; URINE COLOR YELLOW; URINE GLUCOSE-RANDOM* NEGATIVE (Negative); URINE KETONES NEGATIVE (Negative); URINE NITRITE-REFLEX NEGATIVE (Negative); URINE PROTEIN (DIPSTICK) 2+ (Negative); URINE SPECIFIC GRAVITY >= 1.030 (1.005-1.035); URINE UROBILINOGEN 0.2 E.U./dl (0.2-1.0)
[2020-08-29 13:51] LABS: URINE LEUKOCYTES-REFLEX 2+ (Negative)
[2020-08-29 13:52] LABS: CASTS None Seen /LPF (None Seen); CRYSTALS None Seen /LPF (None Seen); SQUAMOUS 0-3 Few /LPF (0-3); URINE RBC 3-10 Few /HPF (0-2)
[2020-08-29 14:06] LABS: HEMATOCRIT 30.5 % (37.0-47.0); HEMOGLOBIN 9.6 gm/dL (12.0-15.0); MCH 22.5 pg (26.0-34.0); MCHC 31.5 g/dL (28.0-37.0); MCV 71.4 fL (80.0-100.0); RBC 4.26 mil/uL (4.20-5.00); RDW 17.1 % (10.5-14.5)
[2020-08-29 14:24] LABS: CALCIUM 9.3 mg/dL (8.5-10.1); CREATININE 0.8 mg/dL (0.6-1.0); POTASSIUM 3.5 mmol/L (3.5-5.1)
[2020-08-29] MEDS ORDERED: NAPROSYN500 MG PO (15:28)
[2020-08-29] MEDS ORDERED: ZOFRAN ODT4 MG DISSOLVE (15:28)
[2020-08-29] MEDS ORDERED: CIPRO500 M1 PO (15:28)
[2020-08-29] MEDS ORDERED: PHENAZOPYRIDIN200 M2 PO (15:28)
== END 2020-08-29 16:06 | disposition home or self-care (01) ==
LOC: ER 11:52
PROVIDERS: Physician Assistant
DX: N39.0 Urinary tract infection, site not specified (principal); D72.829 Elevated white blood cell count, unspecified; J45.909 Unspecified asthma, uncomplicated; Z79.899 Other long term (current) drug therapy; Z87.891 Personal history of nicotine dependence

== ENCOUNTER 2020-12-09 19:39 | Inpatient (IN) | payer OTHER ==
[~2020-12-09] VITALS: Ht 162.6 cm; Wt 61.2 kg
[~2020-12-09 19:39] MED LIST changes: +CIPRO500 M1 PO; +PHENAZOPYRIDIN200 M2 PO; +ZOFRAN ODT4 MG DISSOLVE
[2020-12-09 19:41] VITALS: BP 106/57
[2020-12-09 20:50] LABS: HEMATOCRIT 30.8 % (37.0-47.0); HEMOGLOBIN 9.1 gm/dL (12.0-15.0); MCH 21.1 pg (26.0-34.0); MCHC 29.7 g/dL (28.0-37.0); MCV 71.2 fL (80.0-100.0); PLATELET COUNT 393 thou/uL (150-400); RBC 4.32 mil/uL (4.20-5.00); RDW 21.2 % (10.5-14.5); WBC 17.4 thou/uL (4.0-11.0)
[2020-12-09 20:55] LABS: URINE BILIRUBIN NEGATIVE (Negative); URINE BLOOD 3+ (Negative); URINE CLARITY CLEAR; URINE COLOR YELLOW; URINE GLUCOSE-RANDOM* NEGATIVE (Negative); URINE KETONES NEGATIVE (Negative); URINE LEUKOCYTES-REFLEX NEGATIVE (Negative); URINE NITRITE-REFLEX NEGATIVE (Negative); URINE PROTEIN (DIPSTICK) NEGATIVE (Negative)
[2020-12-09 21:03] LABS: CALCIUM 9.3 mg/dL (8.5-10.1); CREATININE 0.8 mg/dL (0.6-1.0); POTASSIUM 3.5 mmol/L (3.5-5.1)
[2020-12-09 21:09] LABS: ALBUMIN 4.1 g/dL (3.4-5.0); TOTAL BILIRUBIN 0.2 mg/dL (0.2-1.0); TOTAL PROTEIN 8.3 g/dL (6.4-8.2)
[2020-12-09 21:09] LABS: URINE RBC >20 Many /HPF (0-2)
[2020-12-09 21:11] LABS: BACTERIA-REFLEX None Seen /HPF (None Seen); CASTS None Seen /LPF (None Seen); MUCUS None Seen strn/LPF (None Seen); SQUAMOUS 0-3 Few /LPF (0-3); URINE WBC-REFLEX 0-5 Rare /HPF (0-5)
[2020-12-09 21:19] LABS: CRYSTALS None Seen /LPF (None Seen)
--- NOTE | 2020-12-09 21:41 | NUR ---
2ND FLU SWAB SENT TO LAB LAB REPORTS RUNNING FIRST FLU SWAB INCORRECTLY
[2020-12-09 22:29] LABS: ABSOLUTE NEUTROPHILS 14.3 thou/uL (1.4-8.2)
[2020-12-09 22:30] LABS: ANISOCYTOSIS 2+; HYPOCHROMASIA 2+
[2020-12-09 22:31] LABS: MICROCYTES 1+
[2020-12-09 23:36] VITALS: BP 101/51
[2020-12-10] VITALS (8 sets, daily range): BP systolic 75–125; BP diastolic 42–76
--- NOTE | 2020-12-10 01:03 | NUR ---
TALKED WITH CATHY IN REGARDS TO PAIN MEDICATION, SHE HAS PLACED AN ORDER HAS ALREADY SEEN PT
--- NOTE | 2020-12-10 03:42 | NUR ---
ASSESSMENT: PT ARRIVED TO THE UNIT AT APPROXIMATELY 0100 VIA ED. ALERT AND ORIENT TIMES FOUR. URBAN. C/O LEFT (NON-CARDIAC) SIDED CHEST PAIN R/T COUGHING. PRN PAIN MEDICATION GIVEN WITH GOOD RESULTS, PT SLEEPING. SR PER MONITOR. VSS, AFEBRILE. PT STATE THAT SHE FELT NAUSEA AND THAT HER BODY ACHES ALL OVER. ZOFRAN REFUSED AT THIS TIME. DID EAT 1/2 OF A BOX LUNCH AND DRANK SOME SPRITE. NO SKIN ISSUES. DOES HAVE TATS. COVID RESULTS PENDING, IN ISO FOR RULE OUT OF COVID. WILL CONTINUE TO MONITOR.
[2020-12-10 05:44] LABS: HEMATOCRIT 26.4 % (37.0-47.0); HEMOGLOBIN 7.8 gm/dL (12.0-15.0); MCH 21.1 pg (26.0-34.0); MCHC 29.6 g/dL (28.0-37.0); MCV 71.2 fL (80.0-100.0); RBC 3.71 mil/uL (4.20-5.00); RDW 21.1 % (10.5-14.5); WBC 14.9 thou/uL (4.0-11.0)
--- NOTE | 2020-12-10 06:34 | NUR ---
PT STILL RUNNING AFIB ON MONITOR. HR 80-110. PT VOIDS PER URINAL WITH ASSISTANCE. Q2 TURNS. PT REQUESTED PAIN MEDICATION X1. PT IS OUT OF ENHANCED PRECAUTIONS PER ID.
[2020-12-10 06:54] LABS: CALCIUM 7.6 mg/dL (8.5-10.1); CREATININE 0.7 mg/dL (0.6-1.0); POTASSIUM 3.7 mmol/L (3.5-5.1)
--- NOTE | 2020-12-10 08:55 | NUR ---
PAGE DR. SENIOR ABOUT PT BP, WAITING FOR RESPONSE BACK
[2020-12-10 10:52] LABS: % SATURATION 3 % (20-39); IRON 11 ug/dL (50-170); TIBC 368 ug/dL (250-450)
--- NOTE | 2020-12-10 12:29 | NUR ---
INITIAL ASSESSMENT: NANDA reviewed chart and spoke with nursing and attending physician. Pt was admitted from home due to sepsis/pneumonia. Pt tested positive for Influenza A &B. Pt had negative COVID test. Pt is on IV abx and IV steroids. NANDA spoke with pt via phone. Introduced role of SW. Pt is alert/orientated x 4. Pt reports she lives at home with her family. Prior to admission, pt was independent with ADLS. No use of DME. Pt does have inhalers that she uses. Pt with hx of asthma. Pt reports that she does not have a PCP and she has Medicaid because she qualified for it while she was . NANDA discussed having [facility] follow up with pt regarding additional Medicaid coverage. Pt agreeable. NANDA contacted [employer] parts representative. Pt may need assistance with medications at time of discharge. NANDA is following to assist as needed with discharge planning.
--- NOTE | 2020-12-10 15:41 | NUR ---
care assumed at 0700, pt alert and oriented x4, pt denies any chest pain. pt comp[lains of muscle pain and headache. dr. cortez made aware. given orders for flexirel. pt is up with one assist to the bathroom. uses call light apporipriately. denies any needs michelle, will continue to monitor.
[2020-12-11 03:05] LABS: BASOPHILS 0.1 % (0.0-2.0); HEMOGLOBIN 7.2 gm/dL (12.0-15.0); MCH 21.1 pg (26.0-34.0); MCHC 29.9 g/dL (28.0-37.0); MCV 70.5 fL (80.0-100.0); MONOCYTES 3.3 % (1.0-8.0); PLATELET COUNT 341 thou/uL (150-400); POLYS 91.6 % (36.0-66.0); RBC 3.41 mil/uL (4.20-5.00); RDW 20.9 % (10.5-14.5); WBC 16.4 thou/uL (4.0-11.0)
[2020-12-11 03:14] LABS: ALBUMIN 2.9 g/dL (3.4-5.0); ANION GAP 8 mmol/L (7-16); BUN 6 mg/dL (7-18); CALCIUM 8.6 mg/dL (8.5-10.1); CHLORIDE 108 mmol/L (98-107); CO2 24 mmol/L (21-32); CREATININE 0.8 mg/dL (0.6-1.0); GLUCOSE 202 mg/dL (74-106); MAGNESIUM 1.6 mg/dL (1.8-2.4); POTASSIUM 3.8 mmol/L (3.5-5.1); SGOT 15 U/L (15-37); SGPT 17 U/L (30-65); SODIUM 140 mmol/L (136-145); TOTAL BILIRUBIN < 0.1 mg/dL (0.2-1.0)
--- NOTE | 2020-12-11 04:20 | NUR ---
PROGRESS PT A/O X4. LUNGS WITH SOME CRACKLES IN UPPER LOBES DIMINISHED IN BASES UP AD ALYSSA GAIT STEADY. TOOK SHOWER INDEPENDENTLY. IV TO LAC INFUSING NS@125CC/HR, IV ANTIBIOTICS ADMINISTERED ORDERED. PT DENIES NAUSEA AND VOMITING STATES BENNIE ON DAY SHIFT WORKED WELL SHE IS NOW EATING AND DRINKING WITHOUT DIFFICULTY. REPORTED PAIN BUT EFUSED TYLENOL OR IBUPROFEN, THRATENING TO SMOKE IN BATHROOM. ORDER FOR NICOTINE PATCH AND MELATONIN OBTAINED PATCH PLACED ON LEFT UPPER ARM. BP IMPROVED 105/69 AT START OF SHIFT. LACTIC ACID 2.6 THEN 3.2 RECHECK AT 2 AM BACK DOWN TO 2.6. IVF'S CONTINUE. TELEMETRY INTACT READING SR RATES IN 60'S TO 70'S.
[2020-12-11 07:00] VITALS: BP 124/74
--- NOTE | 2020-12-11 14:09 | NUR ---
NANDA reviewed chart and spoke with nursing. Pt remains in isolation due to Influenza A&B. Pt is on IV abx and IV steroids. NANDA placed Health Resource Guide and prescription discount card on pt's chart. This info to be provided to pt upon discharge. Pt stated that her Medicaid plan does not cover medications. Pt also needing a PCP. NANDA is following to assist as needed with discharge planning.
--- NOTE | 2020-12-11 14:58 | NUR ---
CARE TAKEN OVER AT 0700, PT ALERT AND ORIENTED X4, DENIES ANY PAIN, NAUSEA AND VOMITTING. PT STATED MUSCLE PAIN IS MUCH BETTER AFTER GETTING A NICOTINE PATCH. PT CONTINUUES TO BE ON ROOM AIR, NO SIGNS OF DISTRESS NOTED. PT USES CALL LIGHT APPROPRIATELY. DENIES ANY NEEDS AT MOMENT. PT PROGRESSING TOWARDS CARE. WILL CONTINUE TO MONITOR
[2020-12-11 16:00] VITALS: BP 117/66
[2020-12-11 21:12] VITALS: BP 126/55
[2020-12-12 05:12] LABS: HEMATOCRIT 25.3 % (37.0-47.0); HEMOGLOBIN 7.5 gm/dL (12.0-15.0); MCH 20.9 pg (26.0-34.0); MCHC 29.4 g/dL (28.0-37.0); MCV 71.1 fL (80.0-100.0); RBC 3.56 mil/uL (4.20-5.00); RDW 21.1 % (10.5-14.5); WBC 20.3 thou/uL (4.0-11.0)
[2020-12-12 05:19] LABS: PLATELET COUNT 424 thou/uL (150-400)
[2020-12-12 05:37] LABS: ALBUMIN 2.9 g/dL (3.4-5.0); CALCIUM 8.6 mg/dL (8.5-10.1); CREATININE 0.6 mg/dL (0.6-1.0); MAGNESIUM 1.8 mg/dL (1.8-2.4); POTASSIUM 4.3 mmol/L (3.5-5.1); TOTAL BILIRUBIN 0.1 mg/dL (0.2-1.0); TOTAL PROTEIN 6.5 g/dL (6.4-8.2)
--- NOTE | 2020-12-12 07:34 | NUR ---
progress pt progressing slowly, lungs sounds improving but wbc's count increasing hgb at 7.2. pt requesting hydrocodone for low pelvic and back pain. 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 jose lipscomb domain architect notified. continue to monitor.
[2020-12-12 07:42] VITALS: BP 134/76
[2020-12-12 08:49] LABS: ABSOLUTE NEUTROPHILS 17.9 thou/uL (1.4-8.2); ANISOCYTOSIS 2+; HYPOCHROMASIA 2+; MICROCYTES 2+; PLATELET ESTIMATE NORMAL
--- NOTE | 2020-12-12 10:09 | NUR ---
CARE ASSUMED AT 0700, PT ALERT AND ORIENTED X4, PT DNIES CHEST PAIN. COMPLAINS OF NAUSEA, ZOFRAN GIVEN BY TANGLED YARN WORKER NURSE. PT REFUSED HER PEPCID AND MUCINEX BCOS THEY MAKE HER SICK. PT CONTINUES TO BE ON ROOM AIR, NO SIGNS OF DISTRESS NOTED. USES CALL LIGHT APPROPRIATELY, DENIES ANY NEEDS AT MOMENT. WILL CONTINUE TO MONITOR
--- NOTE | 2020-12-12 12:55 | NUR ---
PT BELONGINGS PACKED AND GIVEN TO PT. DISCHARGE INSTRUCTION AND NEW MED INFO GIVEN TO PT. PT TAKEN DOWN VIA WHEELCHAIR
[2020-12-12 15:01] VITALS: BP 138/78
--- NOTE | 2020-12-12 15:47 | NUR ---
DISCHARGE NOTE: SW reviewed chart and spoke with nursing and attending physician. Pt is medically stable for discharge home. SW spoke with pt via phone to discuss discharge plan. Pt's Medicaid policy does not cover medications. Pt states she is unable to afford any new prescriptions. SW explained that meds can be filled in [facility] and will need to be picked up prior to discharge. Pt verbalized understanding. SW updated attending physician and requested scripts to be sent electronically to the outpatient pharmacy. NANDA spoke with Josef in the outpatient pharmacy to notify of scripts. SW notified Director of Case Mgmt. Pt states she has transportation home. Pt to be provided with Health Resource Guide and prescription card, that is on pt's chart. No additional SW needs identified at this time, but is available to assist should needs arise.
[2020-12-12 20:33] VITALS: BP 128/68
--- NOTE | 2020-12-12 23:31 | NUR ---
UPON ARRIVAL TO SHIFT PT REQUESTING TO LEAVE AMA. PROVIDED FORM. PT STATED SHE WOULD FIND A RIDE, WOULD WALK TO ED AND WOULD NOT SIGN FORM. PT TOLD OK. THEN PT ASKED IF SHE COULD ORDER FOOD FROM THE OUTSIDE AND TOLD YES. PT DID NOT ORDER FOOD AND SHE DID NOT REQUEST TO LEAVE AMA AGAIN. DAY NURSE HAD ENCOURAGD PT TO REMAIN TO SEE GYNECOLOGIS. LUNGS WITH WHEEZES, PT INDEP. IVF INTACT. PT PROVIDED PRN MUSCLE RELAXER AND COUGH SYRUP.
[2020-12-13 04:25] VITALS: BP 132/77
[2020-12-13 07:03] VITALS: BP 131/74
[2020-12-13] MEDS ORDERED: LEVOFLOXACIN500 MG PO (13:55)
[2020-12-13] MEDS ORDERED: NICOTINE TRANSD14 M1 TRANSDERM (13:55)
[2020-12-13] MEDS ORDERED: TYLENOL EXTRA500 MG PO (13:55)
[2020-12-13] MEDS ORDERED: OSELTAMIVIR PHO75 MG PO (13:55)
[2020-12-13] MEDS ORDERED: PREDNISONE 20 M20 M1 PO (13:55)
[2020-12-13] MEDS ORDERED: METRONIDAZOLE500 M4 PO (13:55)
[2020-12-13] MEDS ORDERED: IBUPROFEN 200200 M1 PO (13:55)
[2020-12-13] MEDS ORDERED: MELATONIN5 M1 PO (13:55)
[2020-12-13 14:45] VITALS: BP 131/74
--- NOTE | 2020-12-13 16:29 | NUR ---
assumed care of pt at 0700. pt aox4 fussy in no acute distress. vaginal pcr submitted to lab. stable for discharge per physician. wcm.
== END 2020-12-13 16:53 | disposition home or self-care (01) | DRG 871 ==
LOC: ER 19:39 → 3W 22:47 → EROBS 22:47 → 3W 12-10 00:51
PROVIDERS: Nurse Practitioner; Nurse Practitioner Family; ADMIT Internal Medicine; ATTEND Internal Medicine
DX: A41.89 Other specified sepsis (principal); J10.01 Influenza due to other identified influenza virus with the same other identified influenza virus pneumonia; G92 Toxic encephalopathy; J45.909 Unspecified asthma, uncomplicated; F41.9 Anxiety disorder, unspecified; Z20.822 Contact with and (suspected) exposure to COVID-19; F17.210 Nicotine dependence, cigarettes, uncomplicated; D64.9 Anemia, unspecified; N76.0 Acute vaginitis; Z87.442 Personal history of urinary calculi; Z79.899 Other long term (current) drug therapy
CPT/HCPCS: 10879

== ENCOUNTER 2021-01-09 00:12 | Emergency (ER) | payer OTHER ==
[~2021-01-09] VITALS: Ht 152.4 cm; Wt 47.6 kg
[~2021-01-09 00:12] MED LIST changes: +IBUPROFEN 200200 M1 PO; +LEVOFLOXACIN500 MG PO; +MELATONIN5 M1 PO; +METRONIDAZOLE500 M4 PO; +NICOTINE TRANSD14 M1 TRANSDERM; +OSELTAMIVIR PHO75 MG PO; +PREDNISONE 20 M20 M1 PO; +TYLENOL EXTRA500 MG PO
[2021-01-09 00:51] LABS: ABSOLUTE NEUTROPHILS 4.2 thou/uL (1.4-8.2); BASOPHILS 1.3 % (0.0-2.0); EOSINOPHILS 2.2 % (0.0-3.0); HEMATOCRIT 28.7 % (37.0-47.0); HEMOGLOBIN 8.9 gm/dL (12.0-15.0); LYMPHOCYTES 36.4 % (24.0-44.0); MCH 21.9 pg (26.0-34.0); MCHC 31.2 g/dL (28.0-37.0); MCV 70.2 fL (80.0-100.0); MONOCYTES 12.2 % (1.0-8.0); PLATELET COUNT 529 thou/uL (150-400); POLYS 47.9 % (36.0-66.0); RBC 4.09 mil/uL (4.20-5.00); RDW 20.2 % (10.5-14.5); WBC 8.8 thou/uL (4.0-11.0)
[2021-01-09 01:07] LABS: ANION GAP 8 mmol/L (7-16); BUN 11 mg/dL (7-18); CALCIUM 9.4 mg/dL (8.5-10.1); CHLORIDE 104 mmol/L (98-107); CO2 25 mmol/L (21-32); CREATININE 0.5 mg/dL (0.6-1.0); GLUCOSE 90 mg/dL (74-106); POTASSIUM 3.9 mmol/L (3.5-5.1); SODIUM 137 mmol/L (136-145)
[2021-01-09 01:18] LABS: ALBUMIN 3.4 g/dL (3.4-5.0); AMYLASE 151 U/L (25-115); DIRECT BILIRUBIN < 0.1 mg/dL (<0.1-0.2); LIPASE 92 U/L (73-393); SGOT 25 U/L (15-37); SGPT 20 U/L (30-65); TOTAL BILIRUBIN 0.3 mg/dL (0.2-1.0); TOTAL PROTEIN 7.5 g/dL (6.4-8.2); TROPONIN-I <0.06 ng/mL (<0.06)
[2021-01-09 02:14] VITALS: BP 127/77
[2021-01-09] MEDS ORDERED: TYLENOL325 M1 PO (02:27)
[2021-01-09] MEDS ORDERED: PROAIR HFA8.5 GM INH (02:27)
[2021-01-09] MEDS ORDERED: DOXYCYCLINE 10100 MG PO (02:27)
--- NOTE | 2021-01-09 07:16 | EKG ---
[address] [address] ELECTROCARDIOGRAM REPORT Name: SHIV MYERS [id number] Admission: 01/09/21 Attend Phys: Discharge: 01/09/21 Date of : 85 Report #: [id number] [facility] Test Date: 2021-01-09 Test Time: 00:23:46 Pat Name: SHIV MYERS Department: Room: Gender: F Referral And Information Aide: AM : 1985 Requested By: Josh Lockwood Order Number: [id number] MD: Mookie Shaffer Measurements Intervals [place] Rate: 74 P: 6 [place]: 140 QRS: 56 QRSD: 77 T: 31 QT: 378 QTc: 420 Interpretive Statements Sinus rhythm Compared to ECG 10/13/2019 12:19:08 No significant changes Electronically Signed On 01-09-2021 7:16:14 CDT by Mookie Shaffer [email or web address] <ELECTRONICALLY SIGNED> By: Mookie Shaffer MD, [facility] 01/09/21 0716 0023 0023 Mookie Shaffer MD, FACC /EPI
== END 2021-01-09 02:50 | disposition home or self-care (01) ==
LOC: ER 00:12
PROVIDERS: Emergency Medicine
DX: R07.9 Chest pain, unspecified (principal); R00.2 Palpitations; J45.909 Unspecified asthma, uncomplicated; Z79.899 Other long term (current) drug therapy; Z79.1 Long term (current) use of non-steroidal anti-inflammatories (NSAID); Z87.891 Personal history of nicotine dependence

== ENCOUNTER 2021-01-18 02:31 | Emergency (ER) | payer OTHER ==
[~2021-01-18] VITALS: Ht 162.6 cm; Wt 61.2 kg
[~2021-01-18 02:31] MED LIST changes: +DOXYCYCLINE 10100 MG PO; +PROAIR HFA8.5 GM INH; +TYLENOL325 M1 PO
[2021-01-18 04:24] LABS: ABSOLUTE NEUTROPHILS 5.1 thou/uL (1.4-8.2); BASOPHILS 1.4 % (0.0-2.0); EOSINOPHILS 1.3 % (0.0-3.0); HEMATOCRIT 27.3 % (37.0-47.0); HEMOGLOBIN 8.5 gm/dL (12.0-15.0); LYMPHOCYTES 34.5 % (24.0-44.0); MCH 21.8 pg (26.0-34.0); MCHC 31.1 g/dL (28.0-37.0); MCV 70.3 fL (80.0-100.0); MONOCYTES 8.4 % (1.0-8.0); PLATELET COUNT 321 thou/uL (150-400); POLYS 54.4 % (36.0-66.0); RBC 3.88 mil/uL (4.20-5.00); RDW 19.9 % (10.5-14.5); WBC 9.3 thou/uL (4.0-11.0)
[2021-01-18 04:31] LABS: CALCIUM 8.6 mg/dL (8.5-10.1); CREATININE 0.6 mg/dL (0.6-1.0); POTASSIUM 3.6 mmol/L (3.5-5.1)
[2021-01-18 04:37] LABS: ALBUMIN 3.4 g/dL (3.4-5.0); TOTAL BILIRUBIN 0.2 mg/dL (0.2-1.0)
[2021-01-18 05:13] VITALS: BP 93/42
[2021-01-18] MEDS ORDERED: FLAGYL500 M1 PO (05:39)
[2021-01-18] MEDS ORDERED: DOXYCYCLINE 10100 MG PO (05:39)
[2021-01-18] MEDS ORDERED: NAPROSYN500 MG PO (05:39)
[2021-01-18 05:42] LABS: ANISOCYTOSIS 2+; HYPOCHROMASIA 2+; MICROCYTES 2+; POLYCHROMASIA 1+
== END 2021-01-18 06:53 | disposition home or self-care (01) ==
LOC: ER 02:31
PROVIDERS: Emergency Medicine
DX: N73.9 Female pelvic inflammatory disease, unspecified (principal); J45.909 Unspecified asthma, uncomplicated; Z79.1 Long term (current) use of non-steroidal anti-inflammatories (NSAID); Z79.2 Long term (current) use of antibiotics; Z79.899 Other long term (current) drug therapy; Z87.891 Personal history of nicotine dependence; Z88.5 Allergy status to narcotic agent

== ENCOUNTER 2021-01-24 22:24 | Emergency (ER) | payer OTHER ==
[~2021-01-24] VITALS: Ht 162.6 cm; Wt 60.8 kg
[~2021-01-24 22:24] MED LIST changes: +FLAGYL500 M1 PO
[2021-01-25 00:11] LABS: ABSOLUTE NEUTROPHILS 5.8 thou/uL (1.4-8.2); BASOPHILS 0.3 % (0.0-2.0); EOSINOPHILS 1.9 % (0.0-3.0); HEMATOCRIT 29.4 % (37.0-47.0); HEMOGLOBIN 9.4 gm/dL (12.0-15.0); LYMPHOCYTES 30.6 % (24.0-44.0); MCH 22.6 pg (26.0-34.0); MCHC 31.9 g/dL (28.0-37.0); MCV 70.9 fL (80.0-100.0); MONOCYTES 10.7 % (1.0-8.0); PLATELET COUNT 312 thou/uL (150-400); POLYS 56.5 % (36.0-66.0); RBC 4.15 mil/uL (4.20-5.00); RDW 20.7 % (10.5-14.5); WBC 10.3 thou/uL (4.0-11.0)
[2021-01-25 00:26] LABS: CALCIUM 9.1 mg/dL (8.5-10.1); CREATININE 0.6 mg/dL (0.6-1.0)
[2021-01-25 00:31] LABS: ALBUMIN 3.5 g/dL (3.4-5.0); TOTAL BILIRUBIN 0.1 mg/dL (0.2-1.0); TOTAL PROTEIN 7.6 g/dL (6.4-8.2)
[2021-01-25 01:26] VITALS: BP 108/58
[2021-01-25 03:03] LABS: ANISOCYTOSIS 2+; HYPOCHROMASIA 2+; MICROCYTES 1+
--- NOTE | 2021-01-25 11:06 | EKG ---
[address] [place] [address] ELECTROCARDIOGRAM REPORT Name: SHIV MYERS [id number] Admission: 01/24/21 Attend Phys: Discharge: 01/25/21 Date of : 85 Report #: [id number] [facility] ED Test Date: 2021-01-24 Test Time: 23:55:23 Pat Name: SHIV MYERS Department: Room: Gender: F Housekeeper Cleaning Cooking: ROLAND : 1985 Requested By: Dov Pardo Order Number: [id number] MD: Naveen Ledesma Measurements Intervals [place] Rate: 74 P: 72 [place]: 157 QRS: 52 QRSD: 74 T: 31 QT: 364 QTc: 404 Interpretive Statements Sinus rhythm Compared to ECG 01/09/2021 00:23:46 No significant changes Electronically Signed On 01-25-2021 11:05:58 CDT by Naveen Ledesma [email or web address] <ELECTRONICALLY SIGNED> By: Naveen Ledesma MD 01/25/21 1105 2355 2355 Naveen Ledesma MD /GIDEON
== END 2021-01-25 01:30 | disposition home or self-care (01) ==
LOC: ER 22:24
PROVIDERS: Emergency Medicine
DX: M25.512 Pain in left shoulder (principal); T48.1X5A Adverse effect of skeletal muscle relaxants [neuromuscular blocking agents], initial encounter; J45.909 Unspecified asthma, uncomplicated; Z79.899 Other long term (current) drug therapy; Z79.1 Long term (current) use of non-steroidal anti-inflammatories (NSAID); Z88.5 Allergy status to narcotic agent; Z87.891 Personal history of nicotine dependence; Y92.89 Other specified places as the place of occurrence of the external cause

== ENCOUNTER 2021-02-14 01:46 | Emergency (ER) | payer OTHER ==
[~2021-02-14] VITALS: Ht 162.6 cm; Wt 61.7 kg
[2021-02-14 01:49] VITALS: BP 99/50
[2021-02-14 02:14] LABS: URINE BILIRUBIN NEGATIVE (Negative); URINE BLOOD 1+ (Negative); URINE CLARITY CLEAR; URINE COLOR YELLOW; URINE GLUCOSE-RANDOM* NEGATIVE (Negative); URINE KETONES NEGATIVE (Negative); URINE LEUKOCYTES-REFLEX TRACE (Negative); URINE NITRITE-REFLEX NEGATIVE (Negative); URINE PROTEIN (DIPSTICK) NEGATIVE (Negative); URINE SPECIFIC GRAVITY 1.025 (1.005-1.035); URINE UROBILINOGEN 0.2 E.U./dl (0.2-1.0)
[2021-02-14 02:22] LABS: BACTERIA-REFLEX 1-9 Few /HPF (None Seen); CASTS None Seen /LPF (None Seen); CRYSTALS None Seen /LPF (None Seen); MUCUS 0-3 Light strn/LPF (None Seen); SQUAMOUS >10 Many /LPF (0-3); URINE RBC 1-2 Rare /HPF (NONE SEEN); URINE WBC-REFLEX 0-5 Rare /HPF (0-5)
[2021-02-14] MEDS ORDERED: NAPROSYN500 MG PO (02:31)
[2021-02-14] MEDS ORDERED: DIFLUCAN150 MG PO (02:31)
== END 2021-02-14 02:45 | disposition home or self-care (01) ==
LOC: ER 01:46
PROVIDERS: Emergency Medicine
DX: R10.2 Pelvic and perineal pain (principal); J45.909 Unspecified asthma, uncomplicated; Z87.442 Personal history of urinary calculi; Z87.891 Personal history of nicotine dependence; Z88.5 Allergy status to narcotic agent

== ENCOUNTER 2021-03-16 08:08 | Emergency (ER) | payer OTHER ==
[~2021-03-16] VITALS: Ht 162.6 cm; Wt 62.6 kg
[~2021-03-16 08:08] MED LIST changes: +DIFLUCAN150 MG PO
[2021-03-16 08:23] LABS: URINE BILIRUBIN NEGATIVE (Negative); URINE BLOOD 1+ (Negative); URINE CLARITY CLEAR; URINE COLOR YELLOW; URINE GLUCOSE-RANDOM* NEGATIVE (Negative); URINE KETONES NEGATIVE (Negative); URINE LEUKOCYTES-REFLEX NEGATIVE (Negative); URINE NITRITE-REFLEX NEGATIVE (Negative); URINE PROTEIN (DIPSTICK) NEGATIVE (Negative); URINE SPECIFIC GRAVITY >= 1.030 (1.005-1.035); URINE UROBILINOGEN 0.2 E.U./dl (0.2-1.0)
[2021-03-16 08:43] LABS: CASTS None Seen /LPF (None Seen); SQUAMOUS >10 Many /LPF (0-3); URINE RBC 3-10 Few /HPF (NONE SEEN); URINE WBC-REFLEX 0-5 Rare /HPF (0-5)
[2021-03-16 08:44] LABS: BACTERIA-REFLEX 1-9 Few /HPF (None Seen); CRYSTALS None Seen /LPF (None Seen)
[2021-03-16 08:46] LABS: ABSOLUTE NEUTROPHILS 5.6 thou/uL (1.4-8.2); BASOPHILS 0.9 % (0.0-2.0); EOSINOPHILS 1.2 % (0.0-3.0); HEMATOCRIT 32.5 % (37.0-47.0); LYMPHOCYTES 23.3 % (24.0-44.0); MCH 22.3 pg (26.0-34.0); MONOCYTES 11.1 % (1.0-8.0); PLATELET COUNT 319 thou/uL (150-400); POLYS 63.5 % (36.0-66.0); RBC 4.51 mil/uL (4.20-5.00); RDW 21.7 % (10.5-14.5); WBC 8.7 thou/uL (4.0-11.0)
[2021-03-16 08:48] LABS: CALCIUM 8.8 mg/dL (8.5-10.1); CREATININE 0.5 mg/dL (0.6-1.0)
[2021-03-16 08:54] LABS: ALBUMIN 3.4 g/dL (3.4-5.0); TOTAL BILIRUBIN 0.2 mg/dL (0.2-1.0); TOTAL PROTEIN 7.2 g/dL (6.4-8.2)
[2021-03-16 10:02] LABS: ANISOCYTOSIS 1+; MICROCYTES 2+; PLATELET ESTIMATE NORMAL
[2021-03-16] MEDS ORDERED: CLEOCIN40 GM VAG (10:59)
[2021-03-16 11:03] VITALS: BP 94/59
== END 2021-03-16 11:03 | disposition home or self-care (01) ==
LOC: ER 08:08
PROVIDERS: Emergency Medicine
DX: O23.591 Infection of other part of genital tract in pregnancy, first trimester (principal); B96.89 Other specified bacterial agents as the cause of diseases classified elsewhere; R30.0 Dysuria; N89.8 Other specified noninflammatory disorders of vagina; O21.8 Other vomiting complicating pregnancy; O99.511 Diseases of the respiratory system complicating pregnancy, first trimester; J45.909 Unspecified asthma, uncomplicated; O99.341 Other mental disorders complicating pregnancy, first trimester; F41.9 Anxiety disorder, unspecified; Z87.442 Personal history of urinary calculi; Z3A.01 Less than 8 weeks gestation of pregnancy; Z79.899 Other long term (current) drug therapy; Z88.5 Allergy status to narcotic agent; Z87.891 Personal history of nicotine dependence

== ENCOUNTER 2021-04-21 14:55 | Emergency (ER) | payer OTHER ==
[~2021-04-21] VITALS: Ht 162.6 cm; Wt 63.5 kg
[~2021-04-21 14:55] MED LIST changes: +CLEOCIN40 GM VAG
[2021-04-21] MEDS ORDERED: ENBRACE HR SOF1 EACH PO (16:06)
[2021-04-21 16:09] LABS: HEMATOCRIT 30.9 % (37.0-47.0); HEMOGLOBIN 10.1 gm/dL (12.0-15.0); MCH 24.4 pg (26.0-34.0); MCHC 32.7 g/dL (28.0-37.0); MCV 74.6 fL (80.0-100.0); PLATELET COUNT 287 thou/uL (150-400); RBC 4.14 mil/uL (4.20-5.00); RDW 21.8 % (10.5-14.5); WBC 11.4 thou/uL (4.0-11.0)
[2021-04-21 16:19] LABS: ANION GAP 12 mmol/L (7-16); BUN 7 mg/dL (7-18); CALCIUM 9.2 mg/dL (8.5-10.1); CHLORIDE 104 mmol/L (98-107); CO2 22 mmol/L (21-32); CREATININE 0.6 mg/dL (0.6-1.0); GLUCOSE 104 mg/dL (74-106); POTASSIUM 3.4 mmol/L (3.5-5.1); SODIUM 138 mmol/L (136-145)
[2021-04-21 16:26] LABS: SGOT 11 U/L (15-37); SGPT 12 U/L (14-59); TOTAL BILIRUBIN 0.2 mg/dL (0.2-1.0); TOTAL PROTEIN 7.4 g/dL (6.4-8.2); TROPONIN-I <0.06 ng/mL (<0.06)
[2021-04-21 16:42] LABS: ABSOLUTE NEUTROPHILS 8.1 thou/uL (1.4-8.2)
[2021-04-21 16:43] LABS: ANISOCYTOSIS 2+
[2021-04-21 22:30] VITALS: BP 105/58
[2021-04-21] MEDS ORDERED: NORCO5 PO (22:40)
--- NOTE | 2021-04-22 07:14 | EKG ---
[address] [place] [address] ELECTROCARDIOGRAM REPORT Name: SHIV MYERS [id number] Admission: 04/21/21 Attend Phys: Discharge: 04/21/21 Date of : 85 Report #: [id number] [facility] ED Test Date: 2021-04-21 Test Time: 15:13:26 Pat Name: SHIV MYERS Department: Room: Gender: F Shoveler: MPARGordo : 1985 Requested By: Radha Teague Order Number: [id number] MD: Mookie Shaffer Measurements Intervals [place] Rate: 84 P: 65 DC: 134 QRS: 64 QRSD: 75 T: 25 QT: 361 QTc: 427 Interpretive Statements Sinus rhythm Compared to ECG 01/24/2021 23:55:23 No significant changes Electronically Signed On 04-22-2021 7:13:48 CDT by Mookie Shaffer [email or web address] <ELECTRONICALLY SIGNED> By: Mookie Shaffer MD, [facility] 04/22/21 0713 1513 1513 Mookie Shaffer MD, FACKonrad /EPI
== END 2021-04-21 23:45 | disposition home or self-care (01) ==
LOC: ER 14:55
PROVIDERS: Emergency Medicine
DX: O26.892 Other specified pregnancy related conditions, second trimester (principal); R07.9 Chest pain, unspecified; J45.909 Unspecified asthma, uncomplicated; F41.9 Anxiety disorder, unspecified; Z79.899 Other long term (current) drug therapy; Z87.891 Personal history of nicotine dependence; Z88.5 Allergy status to narcotic agent

== ENCOUNTER 2021-12-12 21:19 | Emergency (ER) | payer OTHER ==
[~2021-12-12] VITALS: Ht 167.6 cm; Wt 63.0 kg
[~2021-12-12 21:19] MED LIST changes: +ENBRACE HR SOF1 EACH PO; +NORCO5 PO
[2021-12-12] MEDS ORDERED: IRON325 (21:33)
[2021-12-12 22:23] LABS: ABSOLUTE NEUTROPHILS 5.8 thou/uL (1.4-8.2); BASOPHILS 0.8 % (0.0-2.0); EOSINOPHILS 1.9 % (0.0-3.0); HEMATOCRIT 32.6 % (37.0-47.0); HEMOGLOBIN 10.4 gm/dL (12.0-15.0); LYMPHOCYTES 24.4 % (24.0-44.0); MCH 26.3 pg (26.0-34.0); MCV 82.1 fL (80.0-100.0); MONOCYTES 11.6 % (1.0-8.0); PLATELET COUNT 331 thou/uL (150-400); POLYS 61.3 % (36.0-66.0); RBC 3.96 mil/uL (4.20-5.00); RDW 15.5 % (10.5-14.5); WBC 9.5 thou/uL (4.0-11.0)
[2021-12-12 22:36] LABS: ALBUMIN 3.2 g/dL (3.4-5.0); CALCIUM 8.5 mg/dL (8.5-10.1); CREATININE 0.7 mg/dL (0.6-1.0); POTASSIUM 3.7 mmol/L (3.5-5.1); TOTAL BILIRUBIN 0.1 mg/dL (0.2-1.0); TOTAL PROTEIN 7.2 g/dL (6.4-8.2)
[2021-12-12 23:08] LABS: URINE BILIRUBIN NEGATIVE (Negative); URINE BLOOD 2+ (Negative); URINE CLARITY CLEAR; URINE COLOR YELLOW; URINE GLUCOSE-RANDOM* NEGATIVE (Negative); URINE KETONES NEGATIVE (Negative); URINE LEUKOCYTES-REFLEX NEGATIVE (Negative); URINE NITRITE-REFLEX NEGATIVE (Negative); URINE PROTEIN (DIPSTICK) NEGATIVE (Negative); URINE SPECIFIC GRAVITY 1.025 (1.005-1.035)
[2021-12-12 23:28] LABS: BACTERIA-REFLEX None Seen /HPF (None Seen); CRYSTALS None Seen /LPF (None Seen); MUCUS 0-3 Light strn/LPF (None Seen); SQUAMOUS 0-3 Few /LPF (0-3); URINE RBC 3-10 Few /HPF (NONE SEEN); URINE WBC-REFLEX None Seen /HPF (0-5)
[2021-12-13] MEDS ORDERED: METRONIDAZOLE500 M4 PO (02:11)
[2021-12-13 02:43] VITALS: BP 97/62
--- NOTE | 2021-12-13 09:54 | EKG ---
[address] [place] [address] ELECTROCARDIOGRAM REPORT Name: SHIV MYERS [id number] Admission: 12/12/21 Attend Phys: Discharge: 12/13/21 Date of : 85 Report #: [id number] [facility] ED Test Date: 2021-12-12 Test Time: 21:25:52 Pat Name: SHIV MYERS Department: Room: Gender: F Organ Tuner Electronic: DAWIT TIWARI : 1985 Requested By: Cecelia Penaloza Order Number: [id number] MD: Moo Craft Measurements Intervals [place] Rate: 87 P: 68 [place]: 142 QRS: 53 QRSD: 75 T: 3 QT: 356 QTc: 429 Interpretive Statements Sinus rhythm Probable left atrial enlargement Baseline wander in lead(s) II Compared to ECG 04/21/2021 15:13:26 No significant changes Electronically Signed On 12-13-2021 9:54:13 MEDICAL TRANSCRIPTION by Moo Craft [email or web address] <ELECTRONICALLY SIGNED> By: Moo Craft MD 12/13/21 0954 2125 MD FRANKIE Dahl
== END 2021-12-13 02:43 | disposition home or self-care (01) ==
LOC: ER 21:19
PROVIDERS: Nurse Practitioner Family
DX: N76.0 Acute vaginitis (principal); R07.89 Other chest pain; J45.909 Unspecified asthma, uncomplicated; F41.9 Anxiety disorder, unspecified; Z79.899 Other long term (current) drug therapy; Z87.891 Personal history of nicotine dependence; Z88.5 Allergy status to narcotic agent